=== PATIENT | female | born 1975 | race Caucasian/White ===

== ENCOUNTER 2017-03-27 17:27 | Emergency (ER) | payer SELFPAY ==
[2017-03-27] MEDS ORDERED: IBUPROFEN 600 MG TABLET PO ONE (17:57)
--- NOTE | 2017-03-27 18:09 | ER Document Report ---
ED General - General Chief Complaint: Fall Stated Complaint: FALL/FACE INJURY Notes: 41-year-old female with a history of chronic abdominal pain on multiple narcotic medications presents with face pain headache and posterior neck pain acute onset about 1 hour ago after falling down one flight of stairs. She got disoriented did not lose consciousness but is been confused and "in and out" per her mother. No new neurologic symptoms or change in belly pain. No chest pain or shortness of breath. Not currently dizzy. TRAVEL OUTSIDE OF THE [place] IN LAST 30 DAYS: No - Related Data Allergies/Adverse Reactions: amoxicillin Allergy (Verified 03/27/17 17:35) metoclopramide [From Reglan] Allergy (Verified 03/27/17 17:35) morphine Allergy (Verified 03/27/17 17:35) nitrofurantoin [From Macrobid] Allergy (Verified 03/27/17 17:35) Sulfa (Sulfonamide Antibiotics) Allergy (Verified 03/27/17 17:35) Past Medical History - General Information source: Patient - Social History Smoking Status: Current Every Day Smoker Family History: None Patient has suicidal ideation: No Patient has homicidal ideation: No Renal/ Medical History: Denies: Hx Peritoneal Dialysis Review of Systems - Review of Systems Notes: REVIEW OF SYSTEMS GEN: Denies fever, chills, weight loss ENT: Denies sore throat, nasal discharge, ear pain EYES: Denies blurry vision, eye pain, discharge CV: Denies chest pain, palpitations, edema RESP: Denies cough, shortness of breath, wheezing GI: Chronic abdominal pain MSK: Denies joint pain/swelling, edema, positive neck pain SKIN: Denies rash, skin lesions LYMPH: Denies swollen glands/lymph nodes NEURO: Headache, no dizziness PSYCH: Denies depression, suicidal or homicidal ideation PHYSICAL EXAMINATION General: No acute distress, well-nourished Head: Atraumatic, normocephalic ENT: 8 mm lower inner lip black, through and through, external portion which is below the lower lip in the midline is about 6 mm. Tenderness of the jaw. L, oropharynx moist, no exudates or tonsillar enlargement Eyes: Conjunctiva normal, pupils equal, lids normal Neck: No JVD, supple, no guarding CVS: Normal rate, regular rhythm, no murmurs Resp: No resp distress, equal and normal breath sounds bilaterally GI: Nondistended, soft, no tenderness to palpation, no rebound or guarding Ext: No deformities, no edema, normal range of motion in upper and lower ext Back: No CVA or midline TTP Skin: No rash, warm Lymphatic: No lymphadeopathy noted Neuro: Awake, alert. Face symmetric. GCS 15. Physical Exam - Vital signs Vitals: Temp Pulse Resp BP Pulse Ox 98.1 F 103 H 24 H 133/99 H 96 03/27/17 17:31 03/27/17 17:31 03/27/17 17:31 03/27/17 17:31 03/27/17 17:31 Course - Re-evaluation Re-evalutation: 03/27/17 19:18 Patient presents with fall downstairs in the setting of dizziness. Her exam is significant for jaw tenderness and a small through and through lower lip laceration. She has chronic pain so it is difficult to tell what to do and what old, so I will scan her head and face and neck. Scans appear normal. EKG shows sinus arrhythmia. I do not believe this is a source of her fall. Sinus arrhythmia present. EKG reads atrial flutter, this is artifact and not true flutter as I do see P waves. No ischemic change. I will sew the laceration on the inside Dermabond the outside, and discharge after clearing her c-collar. 03/27/17 19:53 9 laceration repaired as above. Given normal dose of oxycodone for pain. Collar cleared. Scans done and are all negative. Safe for discharge home. I have discussed with the patient there likely diagnosis, aftercare plan, follow -up plans and my usual and customary return precautions. They verbalized understanding of this. - Vital Signs Vital signs: Temp Pulse Resp BP Pulse Ox 98.1 F 103 H 24 H 133/99 H 96 03/27/17 17:31 03/27/17 17:31 03/27/17 17:31 03/27/17 17:31 03/27/17 17:31 - Diagnostic Test Radiology reviewed: Image reviewed, Reports reviewed - EKG Interpretation by Me EKG shows normal: Sinus rhythm - Sinus arrhythmia present. EKG reads atrial flutter, this is artifact and not true flutter as I do see P waves. No ischemic change Procedures - Laceration/Wound Repair Left Lower Face Time completed: 19:10 Wound length (cm): 1.5 Wound's Depth, Shape: Into muscle Laceration pre-procedure: Chloraprep applied Anesthetic type: 1% Lidocaine Volume Anesthetic (mLs): 3 Wound explored: Clean Irrigated w/ Saline (mLs): 20 Wound Repaired With: Dermabond - Lack is through and through. Repaired in 2 layers. Repaired the inner mucosa and deep muscle with absorbable suture and the superficial layer with Dermabond on the outside. Suture Size/Type: Vicryl, 3:0 Number of Sutures: 3 Notes: 03/27/17 19:54 Irrigated through and through with 3 cc of saline with surgical and mixed in. 3 absorbable sutures placed on the mucosal surface, Dermabond of the outside. Consultations: None. Discharge - Discharge Clinical Impression: Lip laceration Qualifiers: Encounter type: initial encounter Qualified Code(s): S01.511A - Laceration without foreign body of lip, initial encounter Concussion Qualifiers: Encounter type: initial encounter Loss of consciousness presence/duration: without LOC Qualified Code(s): S06.0X0A - Concussion without loss of consciousness, initial encounter Condition: Good Disposition: HOME, SELF-CARE Instructions: Laceration Care ([facility]) Additional Instructions: The laceration of your lip went from the inside to the outside. The outside was glued, this glue will peel off on its own. The inside we used absorbable stitches which will go away in a month. Please do not pull them out do not need to return unless there is redness swelling or drainage. In terms of her head injury you may have a headache or feel foggy for a few days but her scan was normal so unless your vomiting or cannot walk straight or have any other concerns you can follow-up with your primary. Otherwise return to the ER. Please talk to your primary doctor or your pain management doctor about managing your acute pain in the setting of her chronic pain.
--- NOTE | 2017-03-27 19:02 | RADIOLOGY REPORT (SQ) ---
EXAM DESCRIPTION: CT CERVICAL SPINE WITHOUT COMPLETED DATE/TIME: 03/27/2017 6:51 pm REASON FOR STUDY: fall neck pn COMPARISON: None. TECHNIQUE: Axial images acquired through the cervical spine without intravenous contrast. Images re viewed with lung, soft tissue and bone windows. Reconstructed coronal and sagittal MPR images review ed. Images stored on PACS. All CT scanners at this facility use dose modulation, iterative reconstruction, and/or weight based d osing when appropriate to reduce radiation dose to as low as reasonably achievable (ALARA). [facility]: Dose Right [facility]: CareDose [facility]: Dose Right [facility]: Teradose 4D [facility]: Smart [employer] RADIATION DOSE: Up-to-date CT equipment and radiation dose reduction techniques were employed. CTDIv ol: 9.5 mGy. DLP: 407 mGy-cm. mGy. LIMITATIONS: None. FINDINGS: ALIGNMENT: Anatomic. MINERALIZATION: Normal. VERTEBRAL BODIES: No fractures or dislocation. DISCS: No significant disc disease. FACETS, LATERAL MASSES, POSTERIOR ELEMENTS: No fractures. No dislocation. No acute findings. HARDWARE: None in the spine. VISUALIZED RIBS: No fractures. LUNG APICES AND SOFT TISSUES: No significant or acute findings. OTHER: No other significant finding. IMPRESSION: NO ACUTE OR SIGNIFICANT FINDINGS IN THE CERVICAL SPINE. TECHNICAL DOCUMENTATION: JOB ID: [id number] Quality ID # [id number]: Final reports with documentation of one or more dose reduction techniques (e.g., Au tomated exposure control, adjustment of the mA and/or kV according to patient size, use of iterative reconstruction technique) 2010 [employer]- All Rights Reserved
--- NOTE | 2017-03-27 19:03 | RADIOLOGY REPORT (SQ) ---
EXAM DESCRIPTION: CT HEAD WITHOUT COMPLETED DATE/TIME: 03/27/2017 6:50 pm REASON FOR STUDY: fall ams COMPARISON: None. TECHNIQUE: Axial images acquired through the brain without intravenous contrast. Images reviewed wi th bone, brain and subdural windows. Images stored on PACS. All CT scanners at this facility use dose modulation, iterative reconstruction, and/or weight based d osing when appropriate to reduce radiation dose to as low as reasonably achievable (ALARA). [facility]: Dose Right [facility]: CareDose [facility]: Dose Right [facility]: Teradose 4D [facility]: Smart [employer] RADIATION DOSE: Up-to-date CT equipment and radiation dose reduction techniques were employed. CTDIv ol: 64.6 mGy. DLP: 1034 mGy-cm. mGy. LIMITATIONS: None. FINDINGS: VENTRICLES: Normal size and contour. CEREBRUM: No masses. No hemorrhage. No midline shift. Normal manning/white matter differentiation. N o evidence for acute infarction. CEREBELLUM: No masses. No hemorrhage. No alteration of density. No evidence for acute infarction. EXTRAAXIAL SPACES: No fluid collections. No masses. ORBITS AND GLOBE: No intra- or extraconal masses. Normal contour of globe without masses. CALVARIUM: Previous frontal craniotomy. No fracture. PARANASAL SINUSES: No fluid or mucosal thickening. SOFT TISSUES: No mass or hematoma. OTHER: No other significant finding. IMPRESSION: NORMAL BRAIN CT WITHOUT CONTRAST. PREVIOUS FRONTAL CRANIOTOMY. NO ACUTE FINDINGS. TECHNICAL DOCUMENTATION: JOB ID: [id number] Quality ID # [id number]: Final reports with documentation of one or more dose reduction techniques (e.g., Au tomated exposure control, adjustment of the mA and/or kV according to patient size, use of iterative reconstruction technique) 2010 [employer]- All Rights Reserved
--- NOTE | 2017-03-27 19:05 | RADIOLOGY REPORT (SQ) ---
EXAM DESCRIPTION: CT FACIAL AREA WITHOUT COMPLETED DATE/TIME: 03/27/2017 6:51 pm REASON FOR STUDY: Fall mandibular tenderness COMPARISON: None. TECHNIQUE: Noncontrasted images through the facial bones and orbits windowed for bone and soft tissu e. Additional coronal and sagittal reconstructed images reviewed. All images stored on PACS. All CT scanners at this facility use dose modulation, iterative reconstruction, and/or weight based d osing when appropriate to reduce radiation dose to as low as reasonably achievable (ALARA). [facility]: Dose Right [facility]: CareDose [facility]: Dose Right [facility]: Teradose 4D [facility]: [employer] RADIATION DOSE: Up-to-date CT equipment and radiation dose reduction techniques were employed. CTDIv ol: 30.4 mGy. DLP: 570 mGy-cm. mGy. LIMITATIONS: None. FINDINGS: FACIAL BONES: No fracture or bone lesion. ORBITS: Intact. No fracture. Symmetric intact globes and retroorbital soft tissues. PARANASAL SINUSES: Clear. No significant mucosal thickening, mass or fluid. No nasal polyps. Maxill jose a sinus outlets are patent. SOFT TISSUES: No mass or edema. INFERIOR BRAIN: Limited view. No acute findings. OTHER: Previous frontal craniotomy. No other significant finding. IMPRESSION: PREVIOUS FRONTAL CRANIOTOMY. NO ACUTE FINDINGS. TECHNICAL DOCUMENTATION: JOB ID: [id number] Quality ID # [id number]: Final reports with documentation of one or more dose reduction techniques (e.g., Au tomated exposure control, adjustment of the mA and/or kV according to patient size, use of iterative reconstruction technique) 2010 [employer]- All Rights Reserved
[2017-03-27] MEDS ORDERED: LIDOCAINE 1% INJ (10 MG/ML) 10 ML MDV INJ ONE (19:08)
[2017-03-27] MEDS ORDERED: LIDOCAINE 1% INJ-PF (10 MG/ML) 30 ML SDV ONE (19:16)
[2017-03-27] MEDS ORDERED: OXYCODONE HCL IR 5 MG TABLET PO ONE (19:51)
--- NOTE | 2017-03-27 19:59 | EKG REPORT ---
SEVERITY:- NORMAL ECG - SINUS RHYTHM : Confirmed by: Carlin Zapien MD 27-Mar-2017 19:59:09
[2017-03-27 21:47] VITALS: BP 138/78
== END 2017-03-27 21:36 | disposition home or self-care (01) ==
LOC: ER 17:27
PROC: 0KQ13ZZ Repair Facial Muscle, Percutaneous Approach (ICD-10-PCS; principal; 2017-03-27)
DX: S06.0X0A Concussion without loss of consciousness, initial encounter (principal); S09.12XA Laceration of muscle and tendon of head, initial encounter; S01.511A Laceration without foreign body of lip, initial encounter; W10.8XXA Fall (on) (from) other stairs and steps, initial encounter; Y93.89 Activity, other specified; R51 Headache; M54.2 Cervicalgia; R42 Dizziness and giddiness; R41.0 Disorientation, unspecified; I49.9 Cardiac arrhythmia, unspecified; G89.29 Other chronic pain; Z79.891 Long term (current) use of opiate analgesic; F17.200 Nicotine dependence, unspecified, uncomplicated; Z88.0 Allergy status to penicillin; Z88.8 Allergy status to other drugs, medicaments and biological substances; Z88.1 Allergy status to other antibiotic agents; Z88.5 Allergy status to narcotic agent; Z88.2 Allergy status to sulfonamides
CPT/HCPCS: 93005; 99284; 70450; 70486; 72125; 93010; 13151; L0120; J3490